=== PATIENT | female | born 1955 | race Hispanic/Latino ===

== ENCOUNTER → 2017-11-29 | Outpatient (CLI) | payer BC | END | disposition home or self-care (01) | LOC: SHCH 12:50 | PROVIDERS: ATTEND Internal Medicine Cardiovascular Disease | DX: R07.9 Chest pain, unspecified (principal) | CPT/HCPCS: 93306 ==

== ENCOUNTER → 2017-11-29 | Outpatient (CLI) | payer SELFPAY | END | disposition home or self-care (01) | LOC: OIH 13:16 | PROVIDERS: ATTEND Internal Medicine Cardiovascular Disease | DX: Z13.6 Encounter for screening for cardiovascular disorders (principal) | CPT/HCPCS: 75571 ==

== ENCOUNTER 2020-11-18 08:39 | Inpatient (IN) | payer BC, SELFPAY ==
[~2020-11-18] VITALS: Ht 160 cm; Wt 62.5 kg
[2020-11-18] MEDS ORDERED: LACTATED RINGERS 1000ML 1,000 ML IV ONE (09:30)
[2020-11-18 09:41] LABS: BASOPHILS % (AUTO) 0.1 % (0.0-5.0); EOSINOPHILS % (AUTO) 0.2 % (0.0-8.0); HEMATOCRIT 48.3 % (36-48); LYMPHOCYTES % (AUTO) 4.8 % (21.0-51.0); MEAN CORPUSCULAR HEMOGLOBIN 33.3 pg (27.0-33.0); MEAN CORPUSCULAR HGB CONC 33.3 g/dL (32.0-36.0); MONOCYTES % (AUTO) 4.3 % (3.0-13.0); NEUTROPHILS % (AUTO) 90.1 % (40.0-77.0); PLATELET COUNT (AUTO) 81 K/uL (130-400); RED BLOOD CELL COUNT(AUTO) 4.83 MIL/uL (4.00-5.50); WHITE BLOOD COUNT (AUTO) 13.9 K/uL (4.8-10.8)
[2020-11-18] MEDS ORDERED: ONDANSETRON 4MG INJ IVP ONE (10:00)
[2020-11-18 10:03] LABS: CREATININE 0.9 mg/dL (0.5-1.5); POTASSIUM 4.2 mmol/L (3.5-5.1)
[2020-11-18 10:04] LABS: B-TYPE NATRIURETIC PEPTIDE 1040 pg/mL (0-100)
[2020-11-18 10:07] LABS: ALBUMIN 3.8 g/dL (3.5-5.0); BILIRUBIN,TOTAL 0.9 mg/dL (0.2-1.0); TOTAL PROTEIN, SERUM 7.7 g/dL (6.0-8.3)
[2020-11-18 10:54] LABS: APPEARANCE,URINE Clear (CLEAR); BILIRUBIN,URINE Negative (NEGATIVE); COLOR,URINE Yellow (YELLOW); GLUCOSE, URINE (UA) Negative (NEGATIVE); KETONES,URINE Trace mg/dL (NEGATIVE); LEUKOCYTE ESTERASE ,URINE Small (NEGATIVE); NITRATE,URINE Negative (NEGATIVE); OCCULT BLOOD,URINE Negative (NEGATIVE); PH,URINE 5.5 (5.0-8.0); PROTEIN,URINE Negative (NEGATIVE)
[2020-11-18 11:02] LABS: BACTERIA,URINE Rare /HPF (None Seen); RBC,URINE 0-1 /HPF (0-1); SQUAMOUS EPITHELIAL CELL,UR Rare /HPF (0-2); WBC,URINE 0-1 /HPF (0-1)
[2020-11-18] MEDS: LEVOFLOXACIN 500 MG/D5W 100 ML 100 ML IV SCH (13:50)
[2020-11-18] MEDS ORDERED: ACETAMINOPHEN 500 MG TABLET PO SCH (14:00)
[2020-11-18] MEDS ORDERED: ACETAMINOPHEN 650 MG SUPPOSITORY RC PRN (16:00)
[2020-11-18] MEDS ORDERED: CLONIDINE HCL 0.1 MG TABLET PO PRN (16:00)
[2020-11-18] MEDS ORDERED: HYDRALAZINE 20MG/ML VIAL IV PRN (16:00)
[2020-11-18] MEDS: DEXTROSE 5 % AND 0.9 % NACL 1,000 ML IV SCH (16:35)
[2020-11-18 17:01] LABS: CREATINE KINASE, TOTAL 41 U/L (21-232); MYOGLOBIN 37 ng/mL (10-92)
[2020-11-18] MEDS: ONDANSETRON 4MG INJ IVP PRN (20:12)
[2020-11-18] MEDS: ACETAMINOPHEN 325 MG TAB PO PRN (20:12)
[2020-11-18] MEDS: METRONIDAZOLE 500MG/100ML BAG 100 ML IVPB SCH (22:25)
[2020-11-19] MEDS: DEXTROSE 5 % AND 0.9 % NACL 1,000 ML IV SCH ×3 (02:00→18:20)
[2020-11-19] MEDS: ONDANSETRON 4MG INJ IVP PRN (04:39)
[2020-11-19] MEDS: ACETAMINOPHEN 325 MG TAB PO PRN ×3 (04:40→22:50)
[2020-11-19 05:00] VITALS: BP 112/63
[2020-11-19 06:04] LABS: BASOPHILS % (AUTO) 0.2 % (0.0-5.0); EOSINOPHILS % (AUTO) 0.2 % (0.0-8.0); HEMATOCRIT 36.1 % (36-48); LYMPHOCYTES % (AUTO) 16.5 % (21.0-51.0); MEAN CORPUSCULAR HEMOGLOBIN 33.5 pg (27.0-33.0); MEAN CORPUSCULAR HGB CONC 33.8 g/dL (32.0-36.0); MEAN CORPUSCULAR VOLUME 99.2 fL (79-99); MONOCYTES % (AUTO) 6.9 % (3.0-13.0); PLATELET COUNT (AUTO) 203 K/uL (130-400); RED BLOOD CELL COUNT(AUTO) 3.64 MIL/uL (4.00-5.50); RED CELL DISTRIBUTION WIDTH 12.3 % (11.0-15.5); WHITE BLOOD COUNT (AUTO) 5.2 K/uL (4.8-10.8)
[2020-11-19] MEDS: METRONIDAZOLE 500MG/100ML BAG 100 ML IVPB SCH ×3 (06:07→22:48)
[2020-11-19] MEDS ORDERED: PROP325C5 PO (06:33)
[2020-11-19 06:35] LABS: CREATININE 0.7 mg/dL (0.5-1.5); MAGNESIUM 1.7 mg/dL (1.80-2.40); PHOSPHORUS 2.3 mg/dL (2.5-4.9); THYROID STIMULATING HORMONE 0.79 uIU/mL (0.36-3.74)
[2020-11-19] MEDS ORDERED: ROSU5TAB12 PO (06:35)
[2020-11-19 07:00] VITALS: BP 98/60
[2020-11-19] MEDS ORDERED: POTASSIUM CHLORIDE 20MEQ/100ML 100 ML IV PRN ×2 (07:00)
[2020-11-19] MEDS ORDERED: POTASSIUM CHLORIDE 10% ELIXIR 20 MEQ/15 ML UDCUP PO PRN (07:00)
[2020-11-19] MEDS ORDERED: LIDOCAINE HCL-MPF 1% 2ML VIAL IV PRN ×2 (07:00)
[2020-11-19] MEDS ORDERED: KCL 20 MEQ ERTAB PO ONE (07:06)
[2020-11-19] MEDS: ENOXAPARIN SODIUM 40 MG/0.4 ML SYRINGE SQ SCH (08:28)
[2020-11-19] MEDS: KCL 20 MEQ ERTAB PO PRN ×2 (09:19→18:20)
[2020-11-19] MEDS ORDERED: CHOLESTYRAMINE PACKET 4 GM PACKET PO SCH (10:30)
[2020-11-19 11:00] VITALS: BP 101/65
[2020-11-19] MEDS: LEVOFLOXACIN 500 MG/D5W 100 ML 100 ML IV SCH (14:08)
[2020-11-19 15:00] VITALS: BP 110/69
[2020-11-19 20:00] VITALS: BP 156/70
[2020-11-19] MEDS: PROPAFENONE HCL 325 MG PO SCH (20:36)
[2020-11-20] VITALS (8 sets, daily range): BP systolic 96–137; BP diastolic 55–81
[2020-11-20] MEDS: METRONIDAZOLE 500MG/100ML BAG 100 ML IVPB SCH ×3 (05:53→21:59)
[2020-11-20] MEDS: KCL 20 MEQ ERTAB PO PRN ×3 (06:40→12:04)
[2020-11-20] MEDS ORDERED: CHOLESTYRAMINE PACKET 4 GM PACKET PO SCH (07:30)
[2020-11-20 08:23] LABS: CREATININE 0.7 mg/dL (0.5-1.5); MAGNESIUM 1.8 mg/dL (1.80-2.40); POTASSIUM 3.3 mmol/L (3.5-5.1)
[2020-11-20] MEDS: ENOXAPARIN SODIUM 40 MG/0.4 ML SYRINGE SQ SCH (08:41)
[2020-11-20] MEDS: PROPAFENONE HCL 325 MG PO SCH ×2 (09:00→21:00)
[2020-11-20] MEDS: ACETAMINOPHEN 325 MG TAB PO PRN (12:08)
[2020-11-20] MEDS: LEVOFLOXACIN 500 MG/D5W 100 ML 100 ML IV SCH (13:30)
[2020-11-20] MEDS: DEXTROSE 5 % AND 0.9 % NACL 1,000 ML IV SCH (17:57)
[2020-11-20] MEDS: CHOLESTYRAMINE PACKET 4 GM PACKET PO SCH (21:01)
[2020-11-21 03:05] VITALS: BP 108/65
[2020-11-21] MEDS: DEXTROSE 5 % AND 0.9 % NACL 1,000 ML IV SCH (03:34)
[2020-11-21] MEDS: METRONIDAZOLE 500MG/100ML BAG 100 ML IVPB SCH (04:49)
[2020-11-21 05:04] LABS: CREATININE 0.8 mg/dL (0.5-1.5); MAGNESIUM 1.7 mg/dL (1.80-2.40); POTASSIUM 3.7 mmol/L (3.5-5.1)
[2020-11-21 08:00] VITALS: BP 119/70
[2020-11-21] MEDS: PROPAFENONE HCL 325 MG PO SCH ×2 (09:00→21:00)
[2020-11-21] MEDS: CHOLESTYRAMINE PACKET 4 GM PACKET PO SCH ×2 (09:10→21:53)
[2020-11-21] MEDS: ENOXAPARIN SODIUM 40 MG/0.4 ML SYRINGE SQ SCH (09:11)
[2020-11-21 11:34] VITALS: BP 123/77
[2020-11-21] MEDS ORDERED: LOPERAMIDE 1 MG/7.5 ML UDCUP PO SCH (14:30)
[2020-11-21] MEDS ORDERED: DIPHENOXYLATE HCL/ATROPINE 2.5/0.025 MG TAB PO ONE (15:00)
[2020-11-21 16:00] VITALS: BP 119/79
[2020-11-21 20:00] VITALS: BP 124/73
[2020-11-22] VITALS: BP 105/59
[2020-11-22] MEDS: DEXTROSE 5 % AND 0.9 % NACL 1,000 ML IV SCH (05:25)
[2020-11-22 06:15] LABS: HEMATOCRIT 41.6 % (36-48); MEAN CORPUSCULAR HEMOGLOBIN 33.4 pg (27.0-33.0); MEAN CORPUSCULAR HGB CONC 32.7 g/dL (32.0-36.0); MEAN CORPUSCULAR VOLUME 102.2 fL (79-99); RED BLOOD CELL COUNT(AUTO) 4.07 MIL/uL (4.00-5.50); WHITE BLOOD COUNT (AUTO) 4.7 K/uL (4.8-10.8)
[2020-11-22 06:34] LABS: CREATININE 0.7 mg/dL (0.5-1.5); POTASSIUM 3.3 mmol/L (3.5-5.1)
[2020-11-22 08:00] VITALS: BP 114/61
[2020-11-22] MEDS: ENOXAPARIN SODIUM 40 MG/0.4 ML SYRINGE SQ SCH (09:00)
[2020-11-22] MEDS: PROPAFENONE HCL 325 MG PO SCH (09:00)
[2020-11-22] MEDS: CHOLESTYRAMINE PACKET 4 GM PACKET PO SCH (09:01)
[2020-11-22] MEDS ORDERED: DIPH1TAB PO (11:05)
[2020-11-22 12:00] VITALS: BP 119/71
== END 2020-11-22 16:15 | disposition home or self-care (01) | DRG 391 ==
LOC: EDH 08:39 → EDHIP 15:47 → OBSVTOIN 15:47 → 3CH 11-19 04:43
PROVIDERS: ADMIT Internal Medicine Critical Care Medicine; ATTEND Internal Medicine Critical Care Medicine
DX: A08.4 Viral intestinal infection, unspecified (principal); R57.1 Hypovolemic shock; D84.9 Immunodeficiency, unspecified; L30.9 Dermatitis, unspecified; I48.0 Paroxysmal atrial fibrillation; Z20.822 Contact with and (suspected) exposure to COVID-19; E86.0 Dehydration; E78.5 Hyperlipidemia, unspecified; E87.6 Hypokalemia; Z90.710 Acquired absence of both cervix and uterus; Z90.49 Acquired absence of other specified parts of digestive tract; Z80.0 Family history of malignant neoplasm of digestive organs; Z82.49 Family history of ischemic heart disease and other diseases of the circulatory system
CPT/HCPCS: 36415; 71045; 74176; 80048; 80053; 81001; 82270; 82550; 83036; 83605; 83630; 83690; 83735; 83874; 83880; 84100; 84132; 84443; 84484; 85025; 85027; 87040; 87046; 87324; 87338; 87507; 87635; 93005; G0378; J1650; J1956; J2405; J3490; J7042

== ENCOUNTER 2021-12-19 03:31 | Observation (INO) | payer BC ==
[~2021-12-19] VITALS: Ht 160 cm; Wt 68.3 kg
[~2021-12-19 03:31] MED LIST: PROP325C5 PO; ROSU5TAB12 PO
[2021-12-19 04:35] LABS: BASOPHILS % (AUTO) 0.3 % (0.0-5.0); EOSINOPHILS % (AUTO) 1.5 % (0.0-8.0); HEMATOCRIT 41.4 % (36-48); LYMPHOCYTES % (AUTO) 34.2 % (21.0-51.0); MEAN CORPUSCULAR HEMOGLOBIN 32.9 pg (27.0-33.0); MEAN CORPUSCULAR HGB CONC 33.6 g/dL (32.0-36.0); MEAN CORPUSCULAR VOLUME 98.1 fL (79-99); MONOCYTES % (AUTO) 5.9 % (3.0-13.0); NEUTROPHILS % (AUTO) 57.8 % (40.0-77.0); PLATELET COUNT (AUTO) 237 K/uL (130-400); RED BLOOD CELL COUNT(AUTO) 4.22 MIL/uL (4.00-5.50); RED CELL DISTRIBUTION WIDTH 12.6 % (11.0-15.5); WHITE BLOOD COUNT (AUTO) 7.3 K/uL (4.8-10.8)
[2021-12-19 04:44] LABS: BILIRUBIN,URINE NEGATIVE (NEGATIVE); COLOR,URINE LIGHT-YELLOW (YELLOW); GLUCOSE, URINE (UA) NEGATIVE (NEGATIVE); KETONES,URINE 5 mg/dL (NEGATIVE); LEUKOCYTE ESTERASE ,URINE NEGATIVE Leu/uL (NEGATIVE); NITRATE,URINE NEGATIVE (NEGATIVE); OCCULT BLOOD,URINE NEGATIVE (NEGATIVE); PH,URINE 5.5 (5.0-8.0); PROTEIN,URINE NEGATIVE (NEGATIVE); UROBILINOGEN,URINE 0.2 mg/dL (0.2-1.0)
[2021-12-19 04:45] LABS: APPEARANCE,URINE SLIGHTLY CLOUDY (CLEAR)
[2021-12-19 04:47] LABS: MUCUS,URINE RARE LPF (None Seen); RBC,URINE 0-1 /HPF (0-1); SQUAMOUS EPITHELIAL CELL,UR MANY /HPF (0-2)
[2021-12-19 04:58] LABS: CREATININE 0.8 mg/dL (0.5-1.5)
[2021-12-19 05:15] LABS: ALBUMIN 3.6 g/dL (3.5-5.0); TOTAL PROTEIN, SERUM 6.9 g/dL (6.0-8.3)
[2021-12-19 05:26] LABS: B-TYPE NATRIURETIC PEPTIDE 8 pg/mL (0-100)
[2021-12-19] MEDS ORDERED: ACETAMINOPHEN 325 MG TAB PO PRN (07:00)
[2021-12-19] MEDS ORDERED: CLONIDINE HCL 0.1 MG TABLET PO PRN (07:00)
[2021-12-19] MEDS ORDERED: ONDANSETRON 4MG INJ IVP PRN (07:00)
[2021-12-19] MEDS ORDERED: ASPIRIN 325MG TAB PO SCH (07:00)
[2021-12-19] MEDS ORDERED: HYDRALAZINE 20MG/ML VIAL IV PRN (07:00)
[2021-12-19] MEDS: INSULIN HUMULIN R 100 UNIT/ML 3ML SQ SCH ×4 (07:02→21:00)
[2021-12-19] MEDS: 0.9%NACL 1000ML 1,000 ML IV SCH ×3 (07:08→11:47)
[2021-12-19] MEDS: ENOXAPARIN SODIUM 30 MG/0.3 ML SQ SCH (09:00)
[2021-12-19] MEDS: ASPIRIN 81MG CHEW TAB PO SCH (09:40)
[2021-12-19] MEDS: FAMOTIDINE 20MG TAB PO SCH ×2 (12:20→22:20)
[2021-12-19 13:36] LABS: INR 0.95 (0.85-1.15); PROTHROMBIN TIME 10.4 SEC (9.6-11.6)
[2021-12-19 13:37] LABS: PARTIAL THROMBOPLASTIN TIME 23.6 SEC (26.3-35.5)
[2021-12-19] MEDS ORDERED: INSULIN R PO SS2 SQ SCH (16:30)
[2021-12-19 18:53] VITALS: BP 115/63
[2021-12-19 19:26] VITALS: BP 120/79
[2021-12-19] MEDS: ATORVASTATIN 40 MG TABLET PO SCH (22:20)
[2021-12-20] VITALS (7 sets, daily range): BP systolic 107–131; BP diastolic 63–81
[2021-12-20 03:26] LABS: HEMATOCRIT 40.4 % (36-48); MEAN CORPUSCULAR HEMOGLOBIN 33.2 pg (27.0-33.0); MEAN CORPUSCULAR HGB CONC 33.9 g/dL (32.0-36.0); MEAN CORPUSCULAR VOLUME 97.8 fL (79-99); RED BLOOD CELL COUNT(AUTO) 4.13 MIL/uL (4.00-5.50); RED CELL DISTRIBUTION WIDTH 12.4 % (11.0-15.5); WHITE BLOOD COUNT (AUTO) 7.1 K/uL (4.8-10.8)
[2021-12-20 03:34] LABS: HEMOGLOBIN A1C 6.1 % (4.0-6.0)
[2021-12-20 03:50] LABS: CREATININE 0.7 mg/dL (0.5-1.5); MAGNESIUM 2.1 mg/dL (1.80-2.40); PHOSPHORUS 3.6 mg/dL (2.5-4.9); POTASSIUM 3.8 mmol/L (3.5-5.1); THYROID STIMULATING HORMONE 2.79 uIU/mL (0.36-3.74)
[2021-12-20] MEDS: INSULIN HUMULIN R 100 UNIT/ML 3ML SQ SCH ×4 (06:08→20:28)
[2021-12-20] MEDS ORDERED: PROPAFENONE HCL 150 MG TABLET PO SCH (09:00)
[2021-12-20] MEDS: CLOPIDOGREL 75MG TAB PO SCH (09:45)
[2021-12-20] MEDS: FAMOTIDINE 20MG TAB PO SCH ×2 (09:45→20:54)
[2021-12-20] MEDS: ENOXAPARIN SODIUM 30 MG/0.3 ML SQ SCH (09:46)
[2021-12-20] MEDS: 0.9%NACL 1000ML 1,000 ML IV SCH (12:35)
[2021-12-20] MEDS: ATORVASTATIN 40 MG TABLET PO SCH (20:54)
[2021-12-20] MEDS: PROPAFENONE 325 MG PO SCH (20:54)
[2021-12-20] MEDS ORDERED: PROPAFENONE 325 MG PO SCH (21:00)
[2021-12-21] VITALS (7 sets, daily range): BP systolic 114–143; BP diastolic 53–85
[2021-12-21 04:46] LABS: MEAN CORPUSCULAR HGB CONC 33.4 g/dL (32.0-36.0); MEAN CORPUSCULAR VOLUME 98.8 fL (79-99); RED BLOOD CELL COUNT(AUTO) 4.15 MIL/uL (4.00-5.50); RED CELL DISTRIBUTION WIDTH 12.4 % (11.0-15.5); WHITE BLOOD COUNT (AUTO) 6.2 K/uL (4.8-10.8)
[2021-12-21 04:48] LABS: CREATININE 0.8 mg/dL (0.5-1.5); MAGNESIUM 2.2 mg/dL (1.80-2.40); POTASSIUM 3.7 mmol/L (3.5-5.1)
[2021-12-21] MEDS: INSULIN HUMULIN R 100 UNIT/ML 3ML SQ SCH ×4 (07:18→20:57)
[2021-12-21] MEDS: PROPAFENONE 325 MG PO SCH ×3 (07:53→20:58)
[2021-12-21] MEDS: CLOPIDOGREL 75MG TAB PO SCH ×2 (09:00→10:32)
[2021-12-21] MEDS: ENOXAPARIN SODIUM 30 MG/0.3 ML SQ SCH ×2 (09:00→10:33)
[2021-12-21] MEDS: FAMOTIDINE 20MG TAB PO SCH ×3 (09:00→20:57)
[2021-12-21] MEDS: ASPIRIN 81MG CHEW TAB PO SCH ×2 (09:00→10:32)
[2021-12-21] MEDS: ATORVASTATIN 40 MG TABLET PO SCH (20:57)
[2021-12-22 00:06] VITALS: BP 107/79
[2021-12-22 03:06] VITALS: BP 110/76
[2021-12-22] MEDS: INSULIN HUMULIN R 100 UNIT/ML 3ML SQ SCH ×2 (05:37→13:36)
[2021-12-22 08:00] VITALS: BP 126/74
[2021-12-22] MEDS: PROPAFENONE 325 MG PO SCH (09:00)
[2021-12-22] MEDS: FAMOTIDINE 20MG TAB PO SCH (09:56)
[2021-12-22] MEDS: ASPIRIN 81MG CHEW TAB PO SCH (09:57)
[2021-12-22] MEDS: CLOPIDOGREL 75MG TAB PO SCH (09:57)
[2021-12-22] MEDS: ENOXAPARIN SODIUM 30 MG/0.3 ML SQ SCH (09:58)
[2021-12-22 12:00] VITALS: BP 128/78
[2021-12-22] MEDS ORDERED: CLOP-31 PO (15:30)
[2021-12-22] MEDS ORDERED: ATOR40TA69 PO (15:30)
[2021-12-22] MEDS ORDERED: ASPI-1005 PO (15:30)
== END 2021-12-22 16:30 | disposition home or self-care (01) ==
LOC: EDH 03:31 → EDHIP 06:34 → 2AH 17:35
PROVIDERS: ADMIT Internal Medicine; ATTEND Internal Medicine
DX: M62.81 Muscle weakness (generalized) (principal); E78.5 Hyperlipidemia, unspecified; I11.0 Hypertensive heart disease with heart failure; I50.9 Heart failure, unspecified; N80.9 Endometriosis, unspecified; R51.9 Headache, unspecified; I47.1 Supraventricular tachycardia; E78.00 Pure hypercholesterolemia, unspecified; E66.9 Obesity, unspecified; F19.90 Other psychoactive substance use, unspecified, uncomplicated; R29.700 NIHSS score 0; Z90.710 Acquired absence of both cervix and uterus; Z98.82 Breast implant status; Z90.49 Acquired absence of other specified parts of digestive tract; Z79.899 Other long term (current) drug therapy; Z98.890 Other specified postprocedural states; Z68.26 Body mass index [BMI] 26.0-26.9, adult
CPT/HCPCS: 96372 ×4; 96360; 96361 ×2; 99285; 82550 ×4; 83874 ×3; 84484 ×4; 80053; 83880 ×2; 85025; 85610; 85730; 82948 ×13; 81001; 36415 ×3; 71045; 70450; 93880; 70551; 70544; 93005; 83036; 84443; 83735 ×2; 84100; 80061; 80048 ×2; 85027 ×2; 93306; 93356; 97161; 93017; 78452; G0378 ×76; J7030 ×2; J1650 ×3; A9500 ×2; 96374

== ENCOUNTER → 2022-01-22 | Outpatient (CLI) | payer BC ==
[~2022-01-22] MED LIST changes: +ASPI-1005 PO; +ATOR40TA69 PO; +CLOP-31 PO; -ROSU5TAB12 PO
== END | disposition home or self-care (01) ==
LOC: SHCH 15:15
PROVIDERS: ATTEND Internal Medicine Cardiovascular Disease
DX: G45.9 Transient cerebral ischemic attack, unspecified (principal); E78.5 Hyperlipidemia, unspecified; Z98.82 Breast implant status
CPT/HCPCS: 93306

== ENCOUNTER → 2022-04-13 | Outpatient (CLI) | payer BC | END | disposition home or self-care (01) | LOC: SHCH 14:45 | PROVIDERS: ATTEND Internal Medicine Cardiovascular Disease | DX: G45.9 Transient cerebral ischemic attack, unspecified (principal) | CPT/HCPCS: 93880 ==

== ENCOUNTER 2023-01-03 22:45 | Emergency (ER) | payer BC, MEDICARE ==
[~2023-01-03] VITALS: Ht 160 cm; Wt 70.3 kg
[2023-01-03] MEDS ORDERED: MECLIZINE HCL 25 MG TABLET PO ONE (23:30)
[2023-01-03] MEDS ORDERED: MECLIZINE HCL 25 MG TABLET ONE (23:30)
[2023-01-04] MEDS ORDERED: MECL-262 PO (00:14)
[2023-01-04 00:25] VITALS: BP 129/69; PULSE 79; RESP 16; O2SAT 98
== END 2023-01-04 00:26 | disposition home or self-care (01) ==
LOC: EDH 22:45
DX: S09.90XA Unspecified injury of head, initial encounter (principal); H81.10 Benign paroxysmal vertigo, unspecified ear; I48.91 Unspecified atrial fibrillation; Z79.02 Long term (current) use of antithrombotics/antiplatelets; Z79.82 Long term (current) use of aspirin; Z86.73 Personal history of transient ischemic attack (TIA), and cerebral infarction without residual deficits; Z90.49 Acquired absence of other specified parts of digestive tract; W18.39XA Other fall on same level, initial encounter; Y93.89 Activity, other specified; Y92.89 Other specified places as the place of occurrence of the external cause; Y99.8 Other external cause status
CPT/HCPCS: 70450

== ENCOUNTER 2023-02-28 23:16 | Emergency (ER) | payer BC, MEDICARE ==
[~2023-02-28] VITALS: Ht 157.5 cm; Wt 68.9 kg
[~2023-02-28 23:16] MED LIST changes: +MECL-262 PO
[2023-02-28 23:18] VITALS: BP 112/80; PULSE 115; RESP 18
[2023-03-01 00:26] LABS: BASOPHILS # (AUTO) 0.02 K/uL (0.00-0.20); BASOPHILS % (AUTO) 0.2 % (0.0-5.0); EOSINOPHILS # (AUTO) 0.05 K/uL (0.00-0.70); EOSINOPHILS % (AUTO) 0.4 % (0.0-8.0); HEMATOCRIT 43.2 % (36-48); IMMATURE GRANULOCYTE ABSOLUTE 0.05 K/uL (0-1); LYMPHOCYTES # (AUTO) 0.9 K/uL (1.0-4.8); LYMPHOCYTES % (AUTO) 7.8 % (21.0-51.0); MEAN CORPUSCULAR HEMOGLOBIN 34.4 pg (27.0-33.0); MEAN CORPUSCULAR HGB CONC 34.5 g/dL (32.0-36.0); MEAN CORPUSCULAR VOLUME 99.8 fL (79-99); MONOCYTES # (AUTO) 0.5 K/uL (0.1-1.0); MONOCYTES % (AUTO) 4.1 % (3.0-13.0); NEUTROPHILS # (AUTO) 10.5 K/uL (1.8-7.7); NEUTROPHILS % (AUTO) 87.1 % (40.0-77.0); PLATELET COUNT (AUTO) 288 K/uL (130-400); RED BLOOD CELL COUNT(AUTO) 4.33 MIL/uL (4.00-5.50); RED CELL DISTRIBUTION WIDTH 13.5 % (11.0-15.5)
[2023-03-01 00:37] LABS: CREATININE 0.8 mg/dL (0.5-1.5); POTASSIUM 3.2 mmol/L (3.5-5.1)
[2023-03-01 00:49] LABS: ALBUMIN 3.5 g/dL (3.5-5.0); BILIRUBIN,TOTAL 1.1 mg/dL (0.2-1.0); TOTAL PROTEIN, SERUM 7.4 g/dL (6.0-8.3)
[2023-03-01] MEDS ORDERED: LACTATED RINGERS 1000ML 1,000 ML IV ONE (01:00)
[2023-03-01] MEDS ORDERED: ONDANSETRON 4MG INJ IVP ONE (01:00)
[2023-03-01] MEDS ORDERED: MORPHINE 2 MG SYG IVP ONE (01:00)
[2023-03-01 01:05] LABS: WBC MORPHOLOGY CONSISTENT W/DIFF
[2023-03-01 01:15] LABS: AMYLASE 58 U/L (25-115)
[2023-03-01 01:24] LABS: APPEARANCE,URINE CLEAR (CLEAR); BILIRUBIN,URINE NEGATIVE (NEGATIVE); COLOR,URINE YELLOW (YELLOW); GLUCOSE, URINE (UA) NEGATIVE (NEGATIVE); KETONES,URINE 10 mg/dL (NEGATIVE); LEUKOCYTE ESTERASE ,URINE NEGATIVE Leu/uL (NEGATIVE); NITRATE,URINE NEGATIVE (NEGATIVE); OCCULT BLOOD,URINE NEGATIVE (NEGATIVE); PH,URINE 7.5 (5.0-8.0); PROTEIN,URINE 30 mg/dL (NEGATIVE); UROBILINOGEN,URINE 0.2 mg/dL (0.2-1.0)
[2023-03-01 01:29] LABS: ADD UA MICROSCOPIC YES
[2023-03-01 01:30] LABS: MUCUS,URINE RARE LPF (None Seen); SQUAMOUS EPITHELIAL CELL,UR RARE /HPF (0-2)
[2023-03-01] MEDS ORDERED: IOHEXOL 350 MG/ML 100ML INFUS..BTL IV ONE (01:35)
[2023-03-01] MEDS ORDERED: ONDA-104 PO (02:30)
[2023-03-01] MEDS ORDERED: OMEP40CA21 PO (02:30)
[2023-03-01] MEDS ORDERED: DICY20TA2 PO (02:30)
== END 2023-03-01 02:46 | disposition home or self-care (01) ==
LOC: EDH 23:16
DX: R10.12 Left upper quadrant pain (principal); Z79.02 Long term (current) use of antithrombotics/antiplatelets; Z79.82 Long term (current) use of aspirin; Z79.899 Other long term (current) drug therapy; Z90.49 Acquired absence of other specified parts of digestive tract
CPT/HCPCS: 99284; 82150; 80053; 83690; 85025; 81001; 36415; 74177; 96374; 96375; J7120; J2270; J2405; Q9967

== ENCOUNTER → 2023-05-02 | Outpatient (CLI) | payer BC, MEDICARE ==
[~2023-05-02] MED LIST changes: +DICY20TA2 PO; +GADOTERATE MEGLUMINE 10 MMOL/20 ML VIAL IV ONE; +OMEP40CA21 PO; +ONDA-104 PO
== END | disposition home or self-care (01) ==
LOC: RAH 09:00
PROVIDERS: ATTEND Internal Medicine Gastroenterology
DX: R10.13 Epigastric pain (principal); R93.2 Abnormal findings on diagnostic imaging of liver and biliary tract
CPT/HCPCS: 74183; A9575

== ENCOUNTER 2024-03-29 13:04 | Emergency (ER) | payer BC, MEDICARE ==
[~2024-03-29] VITALS: Ht 157.5 cm; Wt 66.7 kg
[~2024-03-29 13:04] MED LIST changes: -GADOTERATE MEGLUMINE 10 MMOL/20 ML VIAL IV ONE; +PROP325C17 PO; -PROP325C5 PO
[2024-03-29] MEDS ORDERED: acetaMINOPHEN 325 MG TAB PO STA (13:10)
--- NOTE | 2024-03-29 13:36 | ERN ---
ED Note History of Present Illness Stated Complaint: HEAD INJURY Chief Complaint: Head Injury Time Seen by : 13:09 Time Seen by Midlevel: 13:12 Dictation: 68-year-old female with no past medical history coming in with complaining of severe headache , states yesterday she tripped and fell and hit her head on the concrete, no LOC, no blood thinners. No other complaints at this time. Allergies: Coded Allergies: No Known Drug Allergies (Unverified Allergy, Unknown, 11/18/20) Home Meds Active Scripts Dicyclomine HCl (Bentyl) 20 Mg Tab, 20 MG PO TIDP PRN for PAIN, #60 TAB Prov:TREASURE CAREY MD 03/01/23 Omeprazole (Omeprazole) 40 Mg Capsule.dr, 40 MG PO DAILY, #30 CAP Prov:TREASURE CAREY MD 03/01/23 Ondansetron HCl (Ondansetron HCl) 4 Mg Tablet, 4 MG PO TIDP PRN for VOMITING, #20 TAB Prov:TREASURE CAREY MD 03/01/23 Meclizine HCl (Antivert) 25 Mg Tab.chew, 25 MG PO TIDP PRN for VERTIGO, #20 TAB.CHEW Prov:TREASURE CAREY MD 01/04/23 Aspirin (ASPIRIN 81MG CHEW TAB) 81 Mg Tab.chew, 81 MG PO DAILY, #30 TAB.CHEW 0 Refills Prov:KIKE VELA NP 12/22/21 Clopidogrel Bisulfate (Plavix) 75 Mg Tablet, 75 MG PO DAILY, #21 TAB 0 Refills Prov:KIKE VELA NP 12/22/21 Atorvastatin Calcium (LIPITOR) 40 Mg Tablet, 40 MG PO HS, #30 TAB 0 Refills Prov:KIKE VELA NP 12/22/21 Reported Medications Propafenone HCl (Propafenone HCl) 325 Mg Cap.er.12h, 325 MG PO BID, CAPSULE. 11/19/20 Past Medical History Past Medical History: No Pertinent History Additional Past Medical Hx: PREDIABETIC, VENT TACHYCARDIA Surgical History: Cholecystectomy, Surgical History Other: ABDOMINALPLASTY,BREAST IMPLANT Family History: HTN Social History: Negative, Lives with family Review of System Dictation Constitutional: Negative for fever,chills, and weight loss Eyes: Negative for injury, pain,redness, and discharge ENT: Negative for injury,pain or swelling Cardiovascular: Negative for chest pain, palpitations, and edema Respiratory: Negative for shortness of breath, cough, and wheezing, Abdomen/GI: Negative for abdominal pain, nausea, vomiting, diarrhea, and constipation Back: Negative for injury and pain : Negative for injury, bleeding and discharge MS/Extremity: Negative for injury and deformity Skin: Negative for rash, and discoloration Neuro: Positive for headache, no weakness, no numbness, no tingling, and no seizure Psych: Negative for suicide ideation, homicidal ideation, and hallucinations Review of Systems: was completed Initial Vital Sign VS Vital Signs Date Time Temp Pulse Resp B/P (MAP) Pulse Ox O2 Delivery O2 Flow Rate FiO2 03/29/24 13:06 98.2 69 16 144/82 100 Room Air 03/29/24 13:53 0 21 Physical Exam Dictation General: awake, alert, NAD Head/Face: Normocephalic, left frontal scalp hematoma and bruising Eyes: PERRL, EOMI, vision at baseline ENT: oral cavity clear, TMs clear, no signs of infection Neck: Trachea midline, supple, no nuchal rigidity Cardiovascular: RRR, normal S1/S2, No MRGs, no JVD Respiratory: CTAB, no respiratory distress, No rales or wheezes Abdomen: Soft, non-tender, non-distended, normal bowel sounds, no guarding or rebound. Skin: Warm, dry, normal turgor, no rash MS/Extremity: Pulses equal, no cyanosis, neurovascular intact, FROM Neuro: COAx4, GCS 15, strength 5/5, CN 2-12 intact, normal cerebellar exam, normal gait, Psych: Normal behavior, mood, and affect normal Results (Laboratory/Radiology) CT Scan Comment: [address] [address] IMAGING REPORT Signed PATIENT: NOA CINTRON MR#: [id number] : 1955 SEX: F AGE: 68 LOCATION: [facility] ORDER 131 STATUS: REG ER REPORT#: [id number] SERVICE 131 REASON: fall, blurry vision ORDERING PHYSICIAN: MITZI WALLACE NP PROCEDURE: HEAD WO - CT HEAD/BRAIN W/O CONTRAST CT HEAD/BRAIN W/O CONTRAST HISTORY: Status post fall COMPARISON: None TECHNIQUE: Multiple sequential axial images of the head were obtained from the base of the skull through vertex. Patient was not given contrast through intravenous route. FINDINGS: The ventricles and extraventricular CSF spaces are nondilated for patient's age. There is no midline shift, mass effect or herniation. No acute intracranial bleed is seen. Visualized portion of the paranasal sinuses are grossly within normal limits. IMPRESSION: 1. No acute intracranial bleed is seen. CT was performed with one or more following dose reduction techniques: automated exposure control, adjustment of the mA and kv according to patient's size, or use of a iterative reconstruction technique. DICTATED BY: NARESH CHOPRA MD DATE: 03/29/24 1345 ELECTRONICALLY SIGNED BY: NARESH CHOPRA MD DATE: 03/29/24 1347 ED Course ED Course Orders Procedure Category Date Status Time Ct Head/Brain W/O CT 03/29/24 Resulted Contrast 13:10 Acetaminophen 325 Tab PHA 03/29/24 Complete (Tylenol 325mg Tab 13:10 Current Medications Medications (Trade) Dose Ordered Sig/Jyoti Route PRN Reason Start Time Stop Time Status Last Admin Dose Admin Acetaminophen (TYLenol 325MG TAB) 650 mg ONCE STAT PO 03/29/24 13:10 03/29/24 13:11 DC Vital Signs Date Time Temp Pulse Resp B/P (MAP) Pulse Ox O2 Delivery O2 Flow Rate FiO2 03/29/24 13:53 98.2 65 16 140/80 98 Room Air* 0 21 03/29/24 13:06 98.2 69 16 144/82 100 Room Air Medical Decision Making MDM MDM: 68-year-old female with no past medical history coming in with complaining of severe headache , states yesterday she tripped and fell and hit her head on the concrete, no LOC, no blood thinners. No other complaints at this time. CT scan of the head shows no acute findings. Discussed findings with the patient. Educated patient to take Tylenol [id number] for pain control. To return to the ER if she has any severe headache, nausea or vomiting. Patient verbalized understanding, answered all questions. Differential diagnosis: SDH, frontal scalp hematoma, contusion, concussion Rationale: Tests considered and ordered secondary to shared decision making include: Previous outside records reviewed: Old ER visits. Risk of complication and/or morbidity or mortality of patient management: None Medications-Per medication reconciliation Need for hospitalization: Patient does not meet criteria for hospitalization. Need for emergency major/minor surgery: No There are no social concerns with this patient. Prescription drug management Prescriptions will include symptomatic care Patient's prior external medical records from other ER visits were reviewed by me as indicated. Prior testing and results from previous visits were reviewed. Prior tests were taken into account with medical decision making and resource utilization, independent historian/historians were used to obtain complete medical history. I independently interpreted the test that were performed, results were reviewed by me and considered findings on radiology if ordered. Medical management and examination interpretation discussions were had by me with other qualified healthcare professionals as indicated for the patient's care. DX & DISP Disposition: Discharge Departure Impression: Primary Impression: Closed head injury Condition: Stable Additional Instructions: You can take Tylenol [id number] for pain control. Return to the ER if you have any nausea or vomiting, altered mental status, fevers. Referrals: MADELYN GILL MD (PCP) Time of Disposition: 14:01 I have reviewed the case, and I agree with, Diagnosis and Plan MITZI WALLACE NP Mar 29, 2024 13:36
--- NOTE | 2024-03-29 13:47 | HMCIMG ---
CT HEAD/BRAIN W/O CONTRAST HISTORY: Status post fall COMPARISON: None TECHNIQUE: Multiple sequential axial images of the head were obtained from the base of the skull through vertex. Patient was not given contrast through intravenous route. FINDINGS: The ventricles and extraventricular CSF spaces are nondilated for patient's age. There is no midline shift, mass effect or herniation. No acute intracranial bleed is seen. Visualized portion of the paranasal sinuses are grossly within normal limits. IMPRESSION: 1. No acute intracranial bleed is seen. CT was performed with one or more following dose reduction techniques: automated exposure control, adjustment of the mA and kv according to patient's size, or use of a iterative reconstruction technique.
[2024-03-29 14:11] VITALS: BP 119/71; PULSE 64; RESP 18; TEMP 98; O2SAT 97
== END 2024-03-29 14:08 | disposition home or self-care (01) ==
LOC: EDH 13:04
DX: S00.03XA Contusion of scalp, initial encounter (principal); Z79.02 Long term (current) use of antithrombotics/antiplatelets; Z79.82 Long term (current) use of aspirin; Z90.49 Acquired absence of other specified parts of digestive tract; W01.0XXA Fall on same level from slipping, tripping and stumbling without subsequent striking against object, initial encounter; Y93.89 Activity, other specified; Y92.89 Other specified places as the place of occurrence of the external cause; Y99.8 Other external cause status
CPT/HCPCS: 70450; 99284

== ENCOUNTER → 2024-06-04 | Outpatient (CLI) | payer OTHER ==
--- NOTE | 2024-06-04 14:17 | HMCIMG ---
CT HEART SAVER PROMOTIONAL HISTORY: Calcium scoring COMPARISON: None TECHNIQUE: Computed tomography of the heart was performed with ECG gating and suspended respiration. Postprocessing was performed on a computer workstation to obtain diastolic phase images, determine calcium score and provide a quantitative assessment of extent of disease. This CT included only the heart. HeartSaver score is 215.1. Please see cardiac calcium score report. The available CT chest images show no acute finding. There are bilateral breast implants. CT was performed with one or more following dose reduction techniques: automated exposure control, adjustment of the mA and kv according to patient's size, or use of a iterative reconstruction technique.
== END | disposition home or self-care (01) ==
LOC: RAH 12:58
PROVIDERS: ATTEND Internal Medicine Cardiovascular Disease
DX: Z13.6 Encounter for screening for cardiovascular disorders (principal)
CPT/HCPCS: 75571

== ENCOUNTER 2025-01-13 13:56 | Emergency (ER) | payer BC, MEDICARE ==
[~2025-01-13] VITALS: Ht 157.5 cm; Wt 67.6 kg
--- NOTE | 2025-01-13 14:51 | ERN ---
General Chief Complaint: Mechanical Fall Stated Complaint: FALL Time Seen by MD: 14:00 Source: patient History of Present Illness Initial Comments PATIENT IS A 69-YEAR-OLD FEMALE COMING IN TO BE EVALUATED AFTER SHE WAS COMING DOWN A LADDER SLID DOWN HIT HERSELF IN THE BACK OF THE HEAD. SHE STATES THAT SHE HAS A MILD HEADACHE BUT IS WORRIED ABOUT THE FALL. Allergies: Coded Allergies: No Known Drug Allergies (Unverified Allergy, Unknown, 11/18/20) Home Meds Active Scripts Dicyclomine HCl (Bentyl) 20 Mg Tab, 20 MG PO TIDP PRN for PAIN, #60 TAB Prov:TREASURE CAREY MD 03/01/23 Omeprazole (Omeprazole) 40 Mg Capsule.dr, 40 MG PO DAILY, #30 CAP Prov:TREASURE CAREY MD 03/01/23 Ondansetron HCl (Ondansetron HCl) 4 Mg Tablet, 4 MG PO TIDP PRN for VOMITING, #20 TAB Prov:TREASURE CAREY MD 03/01/23 Meclizine HCl (Antivert) 25 Mg Tab.chew, 25 MG PO TIDP PRN for VERTIGO, #20 TAB.CHEW Prov:TREASURE CAREY MD 01/04/23 Aspirin (ASPIRIN 81MG CHEW TAB) 81 Mg Tab.chew, 81 MG PO DAILY, #30 TAB.CHEW 0 Refills Prov:KIKE VELA NP 12/22/21 Clopidogrel Bisulfate (Plavix) 75 Mg Tablet, 75 MG PO DAILY, #21 TAB 0 Refills Prov:KIKE VELA NP 12/22/21 Atorvastatin Calcium (LIPITOR) 40 Mg Tablet, 40 MG PO HS, #30 TAB 0 Refills Prov:KIKE VELA NP 12/22/21 Reported Medications Propafenone HCl (Propafenone HCl) 325 Mg Cap.er.12h, 325 MG PO BID, CAPSULE. 11/19/20 Past Medical History Past Medical History: CAD, High Cholesterol, Heart Disease Medical History Other: PREDIABETIC, VENT TACHYCARDIA Past Surgical History: None Surgical History Other: ABDOMINALPLASTY,BREAST IMPLANT Family History Family History: HTN Social History Social History: Negative, Lives with family ROS Dictation CONSTITUTIONAL: NO CHILLS, NO FEVER, NO WEAKNESS, NO DIAPHORESIS, NO MALAISE. HEAD/FACE: NO SIGNS OF TRAUMA. EENT: NO EYE PAIN, NO BLURRED VISION, NO TEARING, NO DOUBLE VISION, NO EAR PAIN, NO EAR DISCHARGE, NO NOSE PAIN, NO NASAL CONGESTION, NO THROAT PAIN, NO THROAT SWELLING, NO MOUTH PAIN. RESPIRATORY: NO COUGH, NO ORTHOPNEA, NO SOB, NO STRIDOR, NO WHEEZING. CARDIOVASCULAR: NO CHEST PAIN, NO EDEMA, NO PALPITATIONS, NO SYNCOPE. GASTROINTESTINAL/ABDOMINAL: NO ABDOMINAL PAIN, NO CONSTIPATION, NO DIARRHEA, NO NAUSEA, NO VOMITING. GENITOURINARY: NO ABNORMAL DISCHARGE, NO DYSURIA, NO FREQUENT URINATION, NO HEMATURIA. NO COMPLAINTS OF PAIN IN THE GENITALS. MUSCULOSKELETAL: NO BACK PAIN, NO GOUT, NO JOINT PAIN, NO JOINT SWELLING, NO MUSCLE PAIN, NO MUSCLE STIFFNESS, NO NECK PAIN. INTEGUMENTARY: NO CHANGE IN COLOR, NO CHANGE IN HAIR/NAILS, NO DRYNESS, NO LESION, NO LUMPS, NO RASH. NEUROLOGICAL/PSYCH: NO ANXIETY, NOT DEPRESSED, NO EMOTIONAL PROBLEM, NO H EADACHE, NO NUMBNESS, NO PRE-EXISTING DEFICIT, NO HISTORY OF SEIZURES, NO TREMORS, NO WEAKNESS. HEMATOLOGIC/LYMPHATIC: NOT ANEMIC, NO HISTORY OF BLOOD CLOTS, NO APPARENT BLEEDING, NO BRUISING, GLANDS NOT SWOLLEN. ALL SYSTEMS NEGATIVE, EXCEPT NOTED. Physical Exam Physical Exam Dictation VITAL SIGNS: REVIEWED. GENERAL APPEARANCE: ALERT, ORIENTED X3, NO ACUTE DISTRESS, OBESE. HEAD AND FACE: NON-TRAUMATIC. PAIN ON PALPATION OF THE OCCIPITAL REGION EYES: PERRL, PINK CONJUNCTIVAS, EYELID NO TRAUMA, ANTERIOR CHAMBER CLEAR. EARS: PINNAS INTACT AND NO SIGNS OF TRAUMA OR ERYTHEMA. EAR CANALS CLEAR AND NO DISCHARGE. TMS NO ERYTHEMA. NOSE: NO DISCHARGE, NO BLEEDING. OROPHARYNX: MOUTH NORMAL, TEETH NO CARIES, TONGUE PINK. PHARYNX CLEAR, NO ERYTHEMA. TONSILS NO EXUDATES, NO ABSCESSES NOTED. MUCOUS MEMBRANE MOIST. NECK: SUPPLE, NON-TENDER, NO THYROMEGALY, NO MASSES, NO JVD, NO BRUITS. BREAST: DEFERRED. CHEST: NO TENDERNESS, NO CREPITUS, NO PARADOXICAL MOVEMENT, NO RETRACTIONS. LUNGS: CLEAR, WELL-VENTILATED, SYMMETRIC, NO RALES, NO WHEEZING, NO RHONCHI, NO STRIDOR, GOOD BREATH SOUNDS BILATERALLY. HEART: REGULAR RATE, REGULAR RHYTHM, NO MURMUR, NO GALLOPS. VASCULAR: NO PERIPHERAL EDEMA. ABDOMEN: SOFT, POSITIVE BOWEL SOUNDS, NONDISTENDED, NO GUARDING, NONTENDER, NO REBOUND, NO MASSES NO HEPATOMEGALY, NO SPLENOMEGALY, NO ROLAND'S SIGN, NO HER NIAS. RECTAL: DEFERRED. GENITAL: DEFERRED. NEUROLOGICAL: NORMAL SPEECH, GROSS MOTOR FUNCTION INTACT, GROSS SENSORY FUNCTION INTACT. MUSCULOSKELETAL: NECK NONTENDER, FULL RANGE OF MOTION, BACK NONTENDER, FULL RANGE OF MOTION. EXTREMITIES: NONTENDER, FULL RANGE OF MOTION. SKIN: COLOR PINK, DRY, NO TURGOR, NO RASH, NO LACERATIONS, NO ABRASIONS, NO CONTUSIONS. LYMPHATICS: DEFERRED. Results Laboratory and Microbiology Labs Reviewed?: Yes EKG/XRAY/US/CT/MRI CT Scan Comment IMAGING REPORT Signed PATIENT: NOA CINTRON MR#: [id number] : 1955 SEX: F AGE: 69 LOCATION: [facility] ORDER 02 STATUS: [facility] REPORT#: [id number] SERVICE 02 REASON: fall ORDERING PHYSICIAN: CHARLENE GUTIERREZ MD PROCEDURE: HEAD WO - CT HEAD/BRAIN W/O CONTRAST EXAM: CT Head Without IV contrast. CLINICAL HISTORY: fall TECHNIQUE: Axial computed tomography images of the head/brain without intravenous contrast. COMPARISON: None provided. FINDINGS: BRAIN: No evidence of acute hemorrhage. No mass lesion. No CT evidence for acute territorial infarct. No midline shift or extra-axial collections. VENTRICLES: No hydrocephalus. ORBITS: The orbits are unremarkable. SINUSES AND MASTOIDS: The paranasal sinuses and mastoid air cells are clear. BONES: No fracture. SOFT TISSUES: Unremarkable. IMPRESSION: No acute intracranial abnormality. /[place] DICTATED BY: KELI MOREIRA MD DATE: 01/13/251554 ELECTRONICALLY SIGNED BY: KELI MOREIRA MD DATE: 01/13/251554 MDM MDM: DIFFERENTIAL DIAGNOSIS: FALL, HEAD CONTUSION, RATIONALE: TESTS CONSIDERED AND ORDERED SECONDARY TO SHARED DECISION MAKING INC [place]: LABS, ECG AND RADIOLOGY PREVIOUS OUTSIDE RECORDS REVIEWED: OLD ER VISITS. RISK OF COMPLICATION AND/OR MORBIDITY OR MORTALITY OF PATIENT MANAGEMENT: NONE MEDICATIONS-PER MEDICATION RECONCILIATION NEED FOR HOSPITALIZATION: PATIENT DOES NOT MEET CRITERIA FOR HOSPITALIZATION. NEED FOR EMERGENCY MAJOR/MINOR SURGERY: NO THERE ARE NO SOCIAL CONCERNS WITH THIS PATIENT. PATIENT IS A 69-YEAR-OLD FEMALE COMING IN TO BE EVALUATED AFTER SHE STATES THAT SHE WAS COMING DOWN THE LADDER SLIPPED HIT HERSELF IN THE BACK OF THE HEAD. CT DID NOT DISCLOSE ACUTE FINDINGS. PATIENT WILL BE DISCHARGED IN STABLE WITH A DIAGNOSIS OF FALL HEADACHE. ED Course Orders Procedure Category Date Status Time Ct Head/Brain W/O CT 01/13/25 Resulted Contrast 14:03 Vital Signs Date Time Temp Pulse Resp B/P (MAP) Pulse Ox O2 Delivery O2 Flow Rate FiO2 01/13/25 13:59 98.6 83 18 121/80 99 DX & DISP Disposition: Discharge Departure Impression: Primary Impression: Fall Additional Impression: Head injury Condition: Stable Additional Instructions: FOLLOW-UP WITH PRIMARY CARE PROVIDER IN 1 TO 2 DAYS. TAKE MEDICATIONS DIRECTED HERE IN THE EMERGENCY ROOM. OKAY TO CONTINUE HOME MEDICATIONS UNLESS OTHERWISE DISCUSSED DURING YOUR VISIT IN THE EMERGENCY ROOM TODAY. RETURN TO YOUR NEAREST EMERGENCY ROOM IF SYMPTOMS WORSEN OR IF THERE IS NO IMPROVEMENT. CALL 911 IF YOU NEED IMMEDIATE ASSISTANCE. TAKE TYLENOL [id number] NEEDED AND IF NO CONTRAINDICATIONS ARE PRESENT. INCREASE ORAL HYDRATION. A WOUND CULTURE OR URINE CULTURE WAS ORDERED HERE IN THE EMERGENCY ROOM DEPARTMENT PLEASE FOLLOW-UP WITH PRIMARY CARE PROVIDER AND ADVISE THEM TO GET REPORTS FROM OUR FACILITY. IF YOU HAD ANY KIRSTIN WRAP/SPLINTS THAT WERE APPLIED HERE, PLEASE DO NOT REMOVE THEM UNTIL YOU SEE YOUR PRIMARY CARE OR SPECIALTY. REFERRALS: THIS Referrals: MADELYN GILL MD (PCP) Time of Disposition: 15:15 CHARLENE GUTIERREZ MD Jan 13, 2025 14:51
--- NOTE | 2025-01-13 14:56 | HMCIMG ---
EXAM: CT Head Without IV contrast. CLINICAL HISTORY: fall TECHNIQUE: Axial computed tomography images of the head/brain without intravenous contrast. COMPARISON: None provided. FINDINGS: BRAIN: No evidence of acute hemorrhage. No mass lesion. No CT evidence for acute territorial infarct. No midline shift or extra-axial collections. VENTRICLES: No hydrocephalus. ORBITS: The orbits are unremarkable. SINUSES AND MASTOIDS: The paranasal sinuses and mastoid air cells are clear. BONES: No fracture. SOFT TISSUES: Unremarkable. IMPRESSION: No acute intracranial abnormality. /[place]
[2025-01-13 15:19] VITALS: BP 118/76; PULSE 61; RESP 18; TEMP 97.9; O2SAT 97
== END 2025-01-13 15:20 | disposition home or self-care (01) ==
LOC: EDH 13:56
DX: S09.90XA Unspecified injury of head, initial encounter (principal); E78.00 Pure hypercholesterolemia, unspecified; I25.10 Atherosclerotic heart disease of native coronary artery without angina pectoris; Z79.82 Long term (current) use of aspirin; Z79.02 Long term (current) use of antithrombotics/antiplatelets; Z79.899 Other long term (current) drug therapy; Z98.82 Breast implant status; W11.XXXA Fall on and from ladder, initial encounter; Y93.89 Activity, other specified; Y92.89 Other specified places as the place of occurrence of the external cause; Y99.8 Other external cause status
CPT/HCPCS: 70450; 99284